=== PATIENT | male | born 1970 | race Two or more races ===

== ENCOUNTER 2025-09-15 06:16 | Day surgery (SDC) | payer BC ==
[2025-09-15] VITALS (9 sets, daily range): BP systolic 105–122; BP diastolic 63–80; PULSE 61–66; RESP 12–20; TEMP 97.8; O2SAT 92–95
[~2025-09-15] VITALS: Ht 175.3 cm; Wt 94.3 kg
[~2025-09-15 06:16] MED LIST: ALIR75IN2 SC; ASPI1TAB20 PO; CLOP75TA70 PO; LISI2.5T47 PO; MAGN400T40 PO; METO25TA5 PO; PRED20TA2 PO
[2025-09-15] MEDS: IODIXANOL 320MG/ML 100ML BTL IV ONE (07:20)
[2025-09-15] MEDS: ANGIOMAX 250 MG VIAL IV ONE (08:09)
[2025-09-15] MEDS: HEPARIN SODIUM (PORCINE) 5000 UNITS/ML 1ML VIAL ONE (08:09)
[2025-09-15] MEDS: VERAPAMIL 2.5MG/ML INJ 2ML VIAL IV ONE (08:09)
[2025-09-15] MEDS: fentaNYL CITRATE 100 MCG/2 ML VL ONE (08:09)
[2025-09-15] MEDS: LIDOCAINE 2%HCL (LOCAL ANESTH.) INJ 20ML MDV ONE (08:10)
[2025-09-15] MEDS: SODIUM CHL 0.9% 0 ML ONE (08:10)
[2025-09-15] MEDS: MIDAZOLAM HCL 2MG/2ML 2ml VIAL (1mg/ml) ONE (08:10)
--- NOTE | 2025-09-15 08:38 | DVHOP2 ---
Operative Report Operative Report CARDIAC LICENSED OCCUPATIONAL THERAPY ASSISTANT PROCEDURE REPORT [place], [place] Date of Service: 09/15/25 Electron Gun Assembler: Bernie Funez MD PROCEDURES PERFORMED: Coronary angiogram, left heart catheterization, conscious sedation administration and supervision, less than 15 minutes; fluoroscopy use and interpretation. PREOPERATIVE DIAGNOSES: Abnormal stress test with CCS class 3 angina, POSTOP DIAGNOSIS: cad DESCRIPTION OF PROCEDURE: The patient or appropriate family signed informed consent understanding the risks, benefits and alternatives of the procedure, they wished to proceed. The patient was brought to the cardiac foundry laborer coreroom [place]. The patient was prepped in a sterile fashion. Sedation was used per cardiac cath protocol. I administered 2 mL of 2% lidocaine to the right wrist. With an antegrade front wall puncture. I cannulated the right radial artery and placed a 6-[place] Glidesheath slender. Next, an intra-arterial spasmolytic was administered. Next, a - 6[place] catheter a were used for coronary angiogram and LVEDP measurement and pressure pullback. At the completion of procedure, all guides and wires were removed, and there were no immediate complications. 5000 U of IV heparin given. FINDINGS: RCA: Moderate vessel off the right sinus of Valsalva, there is no severe flow limiting stenosis. 30% prox stenosis. slggish flow through RV marginal vessel. mild distal paque LEFT MAIN: large short size left main, it bifurcates into LAD and circumflex. no severe stenosis CIRCUMFLEX: Moderate caliber vessel coming off the left main . 40% prox CX stenosis. LAD: LAD is a moderate caliber vessel coming of the left main. prox to mid LAD large patent stents. after distal stent there is a 50% tapered lesion and vessel goes from >4 mm to about 2 mm . sluggish flow suggestive of microvascular disease LVEDP of 12 mmhg CONCLUSIONS: 1. patent LAD stents 2. moderate stenosis on L system 3. microvascular disease PLAN: Aggressive risk factor modification and medical management for the patient. BERNIE FUNEZ MD Sep 15, 2025 08:38
[2025-09-15] MEDS: NITROGLYCERIN 50MG/250ML 250 ML IV ONE (08:42)
--- NOTE | 2025-09-15 16:53 | ECG ---
[facility] Test Date: 2025-09-15 Test Time: 07:21:53 Pat Name: KIKO WILLIAM Department: CATHLAB Room: Gender: M Skate Boarder: Edilia SLATER : 1970 Requested By: BERNIE FUNEZ Order Number: [id number] Reading MD: Usman Batres Measurements Intervals [place] Rate: 57 P: -23 MI: 212 QRS: -25 QRSD: 90 T: 44 QT: 399 QTc: 389 Interpretive Statements Sinus rhythm Borderline prolonged MI interval Inferior infarct, old Anterior infarct, old Electronically Signed On 09-18-2025 8:17:46 PST by Usman Batres Please click the below link to view image of tracing.
== END 2025-09-15 10:43 | disposition home or self-care (01) ==
LOC: CATH 06:16
PROVIDERS: ATTEND Internal Medicine
DX: R94.39 Abnormal result of other cardiovascular function study (principal); I25.118 Atherosclerotic heart disease of native coronary artery with other forms of angina pectoris; I25.2 Old myocardial infarction; Z79.82 Long term (current) use of aspirin; Z79.899 Other long term (current) drug therapy; Z95.5 Presence of coronary angioplasty implant and graft; Z87.891 Personal history of nicotine dependence
CPT/HCPCS: 93005; 93458; C1769; C1894; J1644; J2250; J3010; J7040; Q9967; 99152